=== PATIENT | male | born 1955 | race Caucasian/White ===

== ENCOUNTER → 2016-12-20 | Outpatient (CLI) | payer OTHER ==
[~2016-12-20] VITALS: Ht 177.8 cm; Wt 55.3 kg
[~2016-12-20] MED LIST: ATEN50TA PO; CHLORHEXIDINE GLUCONATE 2 % 1 PACK (2 CLOTHS) TOPICAL PRN; CHOL5000 PO; FERR325C PO; FURO40TA PO; GABA600T PO; INSULIN HUMAN REGULAR 1,000 UNITS/10 ML VIAL SQ PRN; LACTATED RINGER'S 1000 ML IV PRN; METF850T PO; METOPROLOL TARTRATE 25 MG TAB PO PRN; MOBI7.5T PO; MORP1TAB25 PO; MORP30SU PO; POVIDONE IODINE 5% (ANTISEPSIS KIT) 4 APPLICATIONS EACH NARE PRN; PROP10TA6 PO; PROPOFOL 200 MG/20 ML AMP IV ONE; SODIUM CHLORID 0.9% 500 ML IV PRN
[2016-12-20 12:24] VITALS: BP 94/58; PULSE 73; RESP 18; TEMP 97.9; O2SAT 99
[2016-12-20 13:42] VITALS: TEMP 97.4
[2016-12-20 14:02] VITALS: BP 109/67; PULSE 73; RESP 18; O2SAT 100
--- NOTE | 2016-12-21 06:41 | MR ---
cc: AMANDA LLANOS DATE OF 1955 DATE OF SERVICE 12/20/2016 INDICATION FOR PROCEDURE Patient with known cirrhosis and esophageal varices. Upper endoscopy being performed at this time as the patient has had variceal banding performed previously. PHOTOGRAPHS AND BIOPSIES Photographs were taken. No biopsies. PREMEDICATION Administered by Anesthesiology. MONITORING Monitoring was accomplished with a pulse oximeter, EKG, blood pressure monitor. PROCEDURE NOTE After informed consent was obtained and procedure, risks and benefits were explained including the risks of bleeding, sepsis, perforation, risks of anesthesia, the patient was placed in the left lateral position. The video endoscope was inserted in the esophagus under direct visualization. There were some tiny esophageal varices in the distal esophagus. These were probably less than grade 1; these were left intact. There was, however, one varix approaching grade 2 to grade 3 with some reddish discoloration without active bleeding. The scope was advanced in the stomach. There was a small amount of residual food in the gastric body and this was suctioned as best possible. In the retroflex view the cardia and fundus were unremarkable. The scope was passed through the pyloric ring in the first, second and third portions of the duodenum. The duodenum was unremarkable as was the rest of the stomach. Attention was directed towards the distal varix that was previously mentioned in the distal portion of the esophagus just above the EG junction. The band ligator device was then applied through the scope in the usual fashion. It was felt prudent to band ligate this one varix which was the largest of the lesion encountered plus it did have some hyperemic signs. Banding was accomplished successfully. There was no active bleeding noted. The rest of the esophagus failed to reveal any large varices. Therefore the procedure was terminated. The patient tolerated procedure well, without immediate complication. IMPRESSION 1. History of cirrhosis. 2. Status post banding of one varix in the distal esophagus which was grade 2, approaching grade 3 with some hyperemic signs. This was prophylactically banded. 3. Unremarkable stomach and duodenum. PLAN We will continue the patient's current therapy. We will follow up clinically as an outpatient. MD GLYNN Gruber/MEHRDAD /1:47 PM /6:35 AM
--- NOTE | 2016-12-21 18:17 | EKG ---
Date Performed: 12/20/2016 Time Performed: 12:27:31 PTAGE: 61 years EKG: Sinus rhythm NORMAL ECG PREVIOUS TRACING : 09/09/2015 01.01 Compared to prior tracing no significant change DOCTOR: Amy León Interpretating Date/Time 12/21/2016 18:15:26
== END ==
LOC: HEND 10:40
PROVIDERS: ATTEND Internal Medicine Gastroenterology
DX: I85.10 Secondary esophageal varices without bleeding (principal); Z01.810 Encounter for preprocedural cardiovascular examination
CPT/HCPCS: 93005